=== PATIENT | female | born 1940 | race Caucasian/White ===

== ENCOUNTER 2021-11-05 10:10 | Outpatient (CLI) | payer MEDICARE, BC ==
[2021-11-05] MEDS ORDERED: Iopamidol 300 61% 100 ML VIAL FS ONE (10:25)
== END 2021-11-05 10:11 | disposition home or self-care (01) ==
LOC: CSHCT 10:10
PROVIDERS: ATTEND Family Medicine
DX: R19.4 Change in bowel habit (principal); K63.9 Disease of intestine, unspecified; K57.30 Diverticulosis of large intestine without perforation or abscess without bleeding
CPT/HCPCS: 74177; 82565

== ENCOUNTER 2021-11-26 12:15 | Outpatient (CLI) | payer MEDICARE, BC | END 2021-11-26 12:16 | disposition home or self-care (01) | LOC: CSHLAB 12:15 | PROVIDERS: ATTEND Internal Medicine Gastroenterology | DX: Z20.822 Contact with and (suspected) exposure to COVID-19 (principal); R19.4 Change in bowel habit; R93.5 Abnormal findings on diagnostic imaging of other abdominal regions, including retroperitoneum | CPT/HCPCS: U0003; U0005 ==

== ENCOUNTER 2021-11-29 06:55 | Day surgery (SDC) | payer MEDICARE, BC ==
[2021-11-26 13:08] VITALS: BMI 22.2
[2021-11-29] MEDS ORDERED: Lidocaine 1% MPF 2 ML VIAL ONE (07:49)
[2021-11-29] MEDS ORDERED: Lidocaine 1% PF 5 ML VIAL ONE (09:18)
[2021-11-29] MEDS ORDERED: PROPOFOL 20 ML ONE (09:18)
== END 2021-11-29 10:30 | disposition home or self-care (01) ==
LOC: CSHSDC 06:55
PROVIDERS: ATTEND Internal Medicine Gastroenterology
PROC: 0DJD8ZZ Inspection of Lower Intestinal Tract, Via Natural or Artificial Opening Endoscopic (ICD-10-PCS; principal; 2021-11-29)
DX: K57.30 Diverticulosis of large intestine without perforation or abscess without bleeding (principal); K64.9 Unspecified hemorrhoids; R93.5 Abnormal findings on diagnostic imaging of other abdominal regions, including retroperitoneum; I10 Essential (primary) hypertension; E03.9 Hypothyroidism, unspecified; Z79.890 Hormone replacement therapy; Z79.899 Other long term (current) drug therapy
CPT/HCPCS: J2704

== ENCOUNTER 2025-02-08 16:26 | Emergency (ER) | payer MEDICARE, BC | END 2025-02-08 18:00 | disposition home or self-care (01) | LOC: CSHERS 16:26 | DX: L03.115 Cellulitis of right lower limb (principal); I10 Essential (primary) hypertension; Z86.73 Personal history of transient ischemic attack (TIA), and cerebral infarction without residual deficits ==